=== PATIENT | male | born 1990 | race African-American/Black ===

== ENCOUNTER 2021-05-24 16:59 | Emergency (ER) | payer MEDICAID ==
[~2021-05-24] VITALS: Ht 170.2 cm; Wt 80.0 kg
[2021-05-24] MEDS ORDERED: LIDOCAINE HCL/EPINEPHRINE 1%-EPI 1:100,000 50 ML VIAL INFIL ONE (18:30)
[2021-05-24 18:36] VITALS: BP 115/73
== END 2021-05-24 19:23 | disposition left against medical advice (07) ==
LOC: ER 16:59
DX: S51.021A Laceration with foreign body of right elbow, initial encounter (principal); W45.8XXA Other foreign body or object entering through skin, initial encounter; W25.XXXA Contact with sharp glass, initial encounter; Y93.89 Activity, other specified; Y92.018 Other place in single-family (private) house as the place of occurrence of the external cause
CPT/HCPCS: 73080; 99283

== ENCOUNTER 2024-07-18 18:10 | Emergency (ER) | payer MEDICAID, OTHER ==
[~2024-07-18] VITALS: Ht 175.3 cm; Wt 75.0 kg
[2024-07-18 18:20] VITALS: O2SAT 99
[2024-07-18] MEDS: TETANUS, DIPHTHERIA, PERTUSSIS VAC/PF 0.5ML (>10YR OLD) IM ONE (18:40)
[2024-07-18] MEDS ORDERED: NAPR-1176 MT (19:11)
[2024-07-18] MEDS: LIDOCAINE HCL/PF 1% 10 MG/ML 5ML VIAL INFIL ONE (19:48)
[2024-07-18] MEDS: BACITRACIN ZINC OINT UDPKT TOP ONE (19:48)
[2024-07-18] MEDS: KETOROLAC 15MG/ML VIAL IM ONE (19:48)
[2024-07-18 19:50] VITALS: BP 126/74; PULSE 75; RESP 18; TEMP 36.78072; O2SAT 98
== END 2024-07-18 19:53 | disposition home or self-care (01) ==
LOC: ER 18:10
DX: S01.111A Laceration without foreign body of right eyelid and periocular area, initial encounter (principal); Z79.1 Long term (current) use of non-steroidal anti-inflammatories (NSAID); W18.39XA Other fall on same level, initial encounter; Y93.89 Activity, other specified; Y92.89 Other specified places as the place of occurrence of the external cause; Y99.8 Other external cause status
CPT/HCPCS: 12013; 96372; 99283; J1885; J3490; Z7610 ×2